=== PATIENT | female | born 1995 | race Caucasian/White ===

== ENCOUNTER 2020-06-19 13:23 | Emergency (ER) | payer OTHER ==
[2020-06-19] MEDS ORDERED: ONDANSETRON HCL INJ/PF 4 MG/2 ML SDV IV ONE (13:48)
[2020-06-19] MEDS ORDERED: NORMAL SALINE 1000 ML 1,000 ML IV ONE (13:48)
[2020-06-19] MEDS ORDERED: KETOROLAC TROMETHAMINE INJ/PF 30 MG/1 ML SDV IV ONE (13:56)
[2020-06-19] MEDS ORDERED: FAMOTIDINE INJ/PF 20 MG/2 ML SDV IV ONE (13:56)
--- NOTE | 2020-06-19 13:56 | ER Document Report ---
ED Medical Screen (RME) - General Chief Complaint: Abdominal Pain Stated Complaint: ABDOMINAL PAIN/VOMITING BLOOD Time Seen by Provider: 06/19/20 13:44 - HPI Notes: 06/19/20 13:50 Patient is a 24-year-old female with no past medical history presenting with 2 days of crampy abdominal pain with associated nausea and vomiting. The cramping is constant and diffuse throughout her abdomen, and she rates it as an 8 out of 10. Reports associated loss of appetite and diarrhea. This morning states that her vomit contained bright red blood. Nothing makes her symptoms better or worse. Denies fever chest pain shortness of breath and sexual activity. Drinks 3-4 liquor drinks a night. Has not drank any ETOH since her symptoms began. I performed a brief medical screening exam on the patient determined that the patient needs further evaluation and management by main side provider. I have placed initial orders to help expedite care. - Related Data Allergies/Adverse Reactions: No Known Allergies Allergy (Verified 06/19/20 13:39) Past Medical History - Social History Frequency of alcohol use: Social Physical Exam - Vital signs Vitals: Temp Pulse Resp BP Pulse Ox 97.6 F 77 16 155/127 H 98 06/19/20 13:29 06/19/20 13:29 06/19/20 13:29 06/19/20 13:29 06/19/20 13:29 Course - Vital Signs Vital signs: Temp Pulse Resp BP Pulse Ox 97.6 F 77 16 155/123 H 98 06/19/20 13:29 06/19/20 13:29 06/19/20 13:29 06/19/20 13:30 06/19/20 13:29
[2020-06-19] MEDS ORDERED: THIAMINE HCL 100 MG in NORMAL SALINE 50 ML IV ONE (13:57)
[2020-06-19 14:30] LABS: ABSOLUTE LYMPHOCYTES (AUTO) 0.6 10^3/uL (0.5-4.7); ABSOLUTE MONOCYTES (AUTO) 0.5 10^3/uL (0.1-1.4); ABSOLUTE NEUT (AUTO) 9.8 10^3/uL (1.7-8.2); BASOPHILS % (AUTO) 0.3 % (0-2); EOSINOPHILS % (AUTO) 0.1 % (0-6); HEMATOCRIT 44.8 % (36.0-47.0); LYMPHOCYTES % (AUTO) 5.3 % (13-45); MEAN CORPUSCULAR HEMOGLOBIN 34.2 pg (27.0-33.4); MEAN CORPUSCULAR HGB CONC 35.7 g/dL (32.0-36.0); MEAN CORPUSCULAR VOLUME 96 fl (80-97); MONOCYTES % (AUTO) 4.2 % (3-13); PLATELET COUNT 196 10^3/uL (150-450); RED BLOOD COUNT 4.67 10^6/uL (3.72-5.28); SEGMENTED NEUTROPHILS % (AUTO) 90.1 % (42-78); TOTAL CELLS COUNTED % (AUTO) 100 %; WHITE BLOOD COUNT 10.9 10^3/uL (4.0-10.5)
[2020-06-19 14:51] LABS: ALBUMIN 4.8 g/dL (3.5-5.0); ALKALINE PHOSPHATASE 101 U/L (38-126); ANION GAP 16 (5-19); ASPARTATE AMINO TRANSFERASE 113 U/L (14-36); BILIRUBIN,DIRECT 0.4 mg/dL (0.0-0.4); BILIRUBIN,TOTAL 1.5 mg/dL (0.2-1.3); BLOOD UREA NITROGEN 9 mg/dL (7-20); CALCIUM 10.2 mg/dL (8.4-10.2); CARBON DIOXIDE 23 mmol/L (22-30); CHLORIDE 95 mmol/L (98-107); GLUCOSE 154 mg/dL (75-110); POTASSIUM 4.3 mmol/L (3.6-5.0); TOTAL PROTEIN 7.8 g/dL (6.3-8.2)
--- NOTE | 2020-06-19 16:42 | ER Document Report ---
ED General - General Chief Complaint: Abdominal Pain Stated Complaint: ABDOMINAL PAIN/VOMITING BLOOD Time Seen by Provider: 06/19/20 13:44 Notes: Patient is a 24-year-old white female with a past medical history of obesity who presents to the emergency department today with a chief complaint of abdominal pain. She states it began on Wednesday, 2 days ago. She states she initially lost her appetite and then became nauseous. She states she is vomited several times since Wednesday. States has been unable to tolerate any oral intake since. She does admit to having some water last night but not much. She states after some of the episodes on Wednesday most of the vomitus has been bile in nature because she is not had any significant oral intake. She states her last vomitus had some streaks of blood mixed with the bile. She states that she is also had some accompanied diarrhea has been scattered throughout the days. She admits that she had upper abdominal cramping with occasional sharp pains throughout the abdomen. She had cold sweats at one point but denies any known fevers. No chest pain or shortness of breath. No urinary complaints. Denies drug use. No recent travel or known sick contacts. - Related Data Allergies/Adverse Reactions: No Known Allergies Allergy (Verified 06/19/20 13:39) Past Medical History - Social History Smoking Status: Never Smoker Frequency of alcohol use: Social Family History: Reviewed & Not Pertinent Patient has homicidal ideation: No Review of Systems - Review of Systems Constitutional: denies: Fever EENT: denies: Nose pain Cardiovascular: denies: Orthopnea Respiratory: denies: Hemoptysis Gastrointestinal: Vomiting Genitourinary: denies: Frequency Female Genitourinary: denies: Irregular period Musculoskeletal: denies: Deformity Skin: denies: Lesions Hematologic/Lymphatic: denies: Blood clots Neurological/Psychological: denies: Loss of power Physical Exam - Vital signs Vitals: Temp Pulse Resp BP Pulse Ox 97.6 F 77 16 155/127 H 98 06/19/20 13:29 06/19/20 13:29 06/19/20 13:29 06/19/20 13:29 06/19/20 13:29 - General General appearance: Appears well, Alert In distress: None - HEENT Head: Normocephalic, Atraumatic Eyes: Normal Conjunctiva: Normal Extraocular movements intact: Yes Pupils: PERRL Mucous membranes: Normal Pharynx: Normal Neck: Normal - Respiratory Respiratory status: No respiratory distress Chest status: Nontender Breath sounds: Normal Chest palpation: Normal - Cardiovascular Rhythm: Regular Heart sounds: Normal auscultation - Abdominal Inspection: Normal Distension: No distension Bowel sounds: Normal Tenderness: Nontender Organomegaly: No organomegaly - Back Back: No: CVA tenderness - Extremities General upper extremity: Normal inspection. No: Edema General lower extremity: Normal inspection. No: Edema, Chai's sign - Neurological Neuro grossly intact: Yes Cognition: Normal - Psychological Associated symptoms: Normal affect, Normal mood - Skin Skin Temperature: Warm Skin Moisture: Dry Skin Color: Normal Course - Re-evaluation Re-evalutation: 06/19/20 16:41 Patient reports upon my evaluation at bedside that she feels "much better". She says she is no longer nauseous and has no abdominal discomfort after the medications given in triage. We will continue to monitor while we await laboratory results. 06/19/20 19:40 Reevaluation at this time, patient is resting comfortably in the room. She states that she is still feeling significantly better had no further episodes of discomfort or nausea or vomiting. Discussed the laboratory results with her, namely the elevated liver enzymes. She states that she does drink alcohol more than she should. A minimally elevated lipase was noted as well. She advised that she will indeed attempt to decrease and cease her alcohol consumption. I recommended that she call her primary doctor tomorrow to establish outpatient follow-up for continued investigation into the liver function test. Advise she return here or any ER immediately with any new, persistent or worsening symptoms. She verbalized understood and agreed. - Vital Signs Vital signs: Temp Pulse Resp BP Pulse Ox 98.2 F 87 16 180/90 H 100 06/19/20 18:31 06/19/20 18:31 06/19/20 18:31 06/19/20 18:40 06/19/20 18:31 - Laboratory Result Diagrams: 06/19/20 14:05 06/19/20 14:05 Laboratory results interpreted by me: 06/19/20 06/19/20 06/19/20 14:05 14:05 18:20 WBC 10.9 H Hgb 16.0 H MCH 34.2 H Lymph % (Auto) 5.3 L Absolute Neuts (auto) 9.8 H Seg Neutrophils % 90.1 H Sodium 134.4 L Chloride 95 L Glucose 154 H Total Bilirubin 1.5 H AST 113 H ALT 150 H Urine Protein 100 H Urine Ketones 80 H Urine Urobilinogen 2.0 H Discharge - Discharge Clinical Impression: Transaminitis Nausea & vomiting Qualifiers: Vomiting type: unspecified Vomiting Intractability: unspecified Qualified Code(s): R11.2 - Nausea with vomiting, unspecified Condition: Stable Disposition: HOME, SELF-CARE Instructions: Liver Function Abnormality ([facility]) Additional Instructions: Follow-up with your regular doctor in 2 to 3 days for reevaluation. Return here or any ER immediately with any new, persistent or worsening symptoms. Referrals: [facility] [NO LOCAL MD] - Follow up as needed
[2020-06-19 18:54] LABS: APPEARANCE,URINE SLIGHTLY-CLOUDY; BILIRUBIN,URINE NEGATIVE (NEGATIVE); COLOR,URINE AMBER; GLUCOSE, URINE NEGATIVE (NEGATIVE); KETONES,URINE 80 mg/dL (NEGATIVE); PROTEIN,URINE 100 mg/dL (NEGATIVE); URINE SPECIFIC GRAVITY 1.034
[2020-06-19 19:14] LABS: URINE AMPHETAMINES SCREEN NEGATIVE; URINE BARBITURATES SCREEN NEGATIVE; URINE BENZODIAZEPINES SCREEN NEGATIVE; URINE COCAINE SCREEN NEGATIVE; URINE MARIJUANA (THC) SCREEN NEGATIVE; URINE METHADONE SCREEN NEGATIVE; URINE PHENCYCLIDINE SCREEN NEGATIVE
[2020-06-19 20:06] VITALS: BP 153/120
== END 2020-06-19 20:06 | disposition home or self-care (01) ==
LOC: ER 13:23
DX: R74.01 Elevation of levels of liver transaminase levels (principal); R11.2 Nausea with vomiting, unspecified; R10.9 Unspecified abdominal pain
CPT/HCPCS: 99284; 96361; 96374; 96375; 36415; 83690; 83735; 84703; 85025; 80053; 81001; 80307; J1885; J2405; J7030; S0028